=== PATIENT | female | born 1980 ===

== ENCOUNTER 2019-12-05 16:01 | Day surgery (SDC) | payer BC ==
[~2019-12-05 16:01] MED LIST: Lactated Ringer's 1,000 ML IV SCH; Mineral Oil PER 1 ML TOP SCH; Ondansetron PF 4 MG/2 ML Vial IVP PRN; Promethazine HCl 25 MG/ML VIAL IM PRN; Terbutaline Sulfate 1 MG/ML VIAL SC SCH; hydrALAZINE 20 MG/ML VIAL SLOW IVP PRN
[2019-12-05 16:32] LABS: RBC Distribution Width 12.5 % (11.5-14.5)
[2019-12-05 16:50] LABS: Hemoglobin 12.2 g/dL (12.0-16.0); Mean Corpuscular HGB CONC 33.9 g/dL (32.0-36.0); Mean Corpuscular Volume 91.6 fL (78.0-98.0); Mean Platelet Volume 8.5 fL (7.4-10.4); Platelet Count 208 thou/uL (130-400); Red Blood Cell (RBC) Count 3.92 mill/uL (4.20-5.40); White Blood Cell (WBC) Count 12.2 thou/uL (4.8-10.8)
[2019-12-05 16:54] VITALS: BMI 25.0
[2019-12-05 17:11] LABS: HBSAg Index 0.25 S/CO (0-0.99); Hep B Surf Ag Non-Reactive S/CO (NonReactive); Syphilis Antibody Nonreactive (Nonreactive); Syphilis Antibody Index 0.04 S/CO (<1.00 Non-Reactive)
== END 2019-12-05 18:25 | disposition home health service (06) ==
LOC: L&D/OP 16:01
PROVIDERS: ATTEND Obstetrics & Gynecology
PROC: 10S0XZZ Reposition Products of Conception, External Approach (ICD-10-PCS; principal; 2019-12-05)
DX: O32.1XX0 Maternal care for breech presentation, not applicable or unspecified (principal); Z3A.00 Weeks of gestation of pregnancy not specified
CPT/HCPCS: 36415; 85027; 86780; 86850; 86870; 86900; 86901; 87340; 90384; 96372; J3105

== ENCOUNTER 2019-12-20 00:43 | Inpatient (IN) | payer BC ==
[2019-12-20 01:23] VITALS: BMI 26.6
[2019-12-20] MEDS ORDERED: Ondansetron PF 4 MG/2 ML Vial IVP PRN ×2 (02:33→23:46)
[2019-12-20] MEDS ORDERED: Ibuprofen 800 MG TAB PO PRN (02:33)
[2019-12-20] MEDS ORDERED: Lidocaine 1% (PF) 30 ML VIAL SC PRN (02:33)
[2019-12-20] MEDS ORDERED: hydrALAZINE 20 MG/ML VIAL SLOW IVP PRN ×2 (02:33→23:46)
[2019-12-20] MEDS ORDERED: Promethazine HCl 25 MG/ML VIAL IM PRN (02:33)
[2019-12-20] MEDS ORDERED: NS / Oxytocin 40 units/1000ml 1,000 ML IV PRN (02:33)
[2019-12-20 02:45] LABS: Hemoglobin 13.2 g/dL (12.0-16.0); Mean Corpuscular Hemoglobin 31.1 pg (27.0-31.0); Mean Corpuscular Volume 91.5 fL (78.0-98.0); Mean Platelet Volume 8.8 fL (7.4-10.4); Platelet Count 214 thou/uL (130-400); RBC Distribution Width 12.5 % (11.5-14.5); Red Blood Cell (RBC) Count 4.24 mill/uL (4.20-5.40); White Blood Cell (WBC) Count 15.3 thou/uL (4.8-10.8)
[2019-12-20 03:18] LABS: HBSAg Index 0.26 S/CO (0-0.99); Hep B Surf Ag Non-Reactive S/CO (NonReactive)
[2019-12-20 04:18] LABS: Syphilis Antibody Nonreactive (Nonreactive); Syphilis Antibody Index 0.04 S/CO (<1.00 Non-Reactive)
--- NOTE | 2019-12-20 07:55 | PDOC.LDHP ---
Labor and Delivery H&P Chief complaint: contractions HPI: Patient started namrata at 2030 and had been namrata for several hours at home. During her last she waited at home too long and arrived at 9cm. She decided to come to hospital for use bathtub. She arrived at 1200 to hospital for evaluation. +FM. contraction every three to five minutes. Denies ROM, VB. Current gestational age (weeks): 39 (and 6 days) Due date: 12/21/19 Grav: 4 Para: 3 Current complications: other (Successful ECV at 37 weeks gestation Advanced maternal age) Current medications: pre-evelio vitamins Allergies/Adverse Reactions: Allergies Allergy/AdvReac Type Severity Reaction Status Date / Time No Known Allergies Allergy Verified 12/20/19 01:14 Social history: none - Physical Exam Vital signs reviewed and normal: yes General: breathing through contractions Heart: RRR Lungs: nonlabored breathing Abdomen: gravid FHT: category 1 - Vaginal Exam cm dilated: 3 Effacement: 50% Station: -1 - Assessment L&D Assessment: term patient in labor - Plan Plan: admit to L&D
--- NOTE | 2019-12-20 14:13 | PDOC.LDPN ---
Labor & Delivery Progress Note - Subjective Subjective: comfortable - Objective Vital signs reviewed and normal: yes General: resting Uterine fundus: non tender Dilation: 4 Effacement: 75% Station: -1 FHT: category 1 AROM: clear fluid - Assessment (1) 39 weeks gestation of Code(s): Z3A.39 - 39 WEEKS GESTATION OF Current Visit: Yes Status : Acute (2) Advanced maternal age (AMA) in Code(s): [id number] - Current Visit: Yes Status: Acute Plan: continue plan of care
[2019-12-20] MEDS ORDERED: Misoprostol 200 MCG TAB ONE (21:36)
--- NOTE | 2019-12-20 21:47 | PDOC.LDPN ---
Labor & Delivery Progress Note - Subjective Subjective: painful contractions, vaginal pressure - Objective Vital signs reviewed and normal: yes General: breathing through contractions Uterine fundus: non tender Dilation: 7 Effacement: 90% Station: -1 FHT: category 1 - Assessment (1) 39 weeks gestation of Code(s): Z3A.39 - 39 WEEKS GESTATION OF Current Visit: Yes Status : Acute (2) Advanced maternal age (AMA) in Code(s): [id number] - Current Visit: Yes Status: Acute Plan: continue plan of care
[2019-12-20] MEDS ORDERED: Bisacodyl 10 MG SUPP PR PRN (23:46)
[2019-12-20] MEDS ORDERED: NS / Oxytocin 40 units/1000ml 1,000 ML IV SCH (23:46)
[2019-12-20] MEDS ORDERED: Methylergonovine 0.2 MG/ML VIAL IM PRN (23:46)
[2019-12-20] MEDS ORDERED: HYDROcodone/Acetaminophen 5/325 mg Tablet PO PRN ×2 (23:46)
[2019-12-20] MEDS ORDERED: Milk Of Magnesia 30 ML UDCUP PO PRN (23:46)
[2019-12-20] MEDS ORDERED: Benzocaine-Menthol 82.5 ML CAN TOP PRN (23:46)
[2019-12-21] MEDS ORDERED: Witch Hazel-Glycerin 1 EACH JAR TOP PRN (00:54)
[2019-12-21] MEDS: Docusate Calcium (SURFAK) 240 MG CAP PO SCH ×2 (01:06→21:39)
[2019-12-21] MEDS: Ibuprofen 800 MG TAB PO SCH ×3 (06:22→21:39)
[2019-12-21] MEDS ORDERED: Sodium Chloride 0.9% 10 ML ONE ×2 (06:27)
[2019-12-21] MEDS ORDERED: Adacel (T-DAP) 0.5 ML SYRINGE IM ONE (09:00)
--- NOTE | 2019-12-21 09:30 | PDOC.PP ---
Post Progress Note Post Day #: 1 Subjective: Pt is doing well. she is sore on her bottom, but ok. Taking motrin. PO intake tolerated: yes Flatus: yes Ambulation: yes Vital Signs (12 hours) Temp Pulse Resp BP Pulse Ox 12/21/19 09:05 98.6 F 87 17 97/58 L 98 12/21/19 03:30 98.6 F 73 16 119/61 12/21/19 01:45 98.7 F 82 16 118/56 L 12/21/19 00:30 99.1 F 102 H 18 119/64 97 Weight Weight 170 lb - Physical Examination General: NAD Respiratory: clear to auscultation bilaterally, non-labored breathing Abdominal: + bowel sounds, lochia (minimal) Fundus firm & at: -1 Extremities: negative homans (B) Skin: no rash Neurological: no gross focal deficits Psychiatric: A&Ox3, normal affect Result Diagrams: 12/20/19 02:36 Additional Labs: Post Labs Blood Type O NEGATIVE 12/20/19 02:36 Hep Bs Antigen Non-Reactive S/CO (NonReactive) 12/20/19 02:36 (1) 39 weeks gestation of Code(s): Z3A.39 - 39 WEEKS GESTATION OF Status: Acute (2) Advanced maternal age (AMA) in Code(s): [id number] - Status: Acute (3) (spontaneous vaginal delivery) Code(s): O80 - ENCOUNTER FOR FULL-TERM UNCOMPLICATED DELIVERY Status: Acute - Assessment/Plan A: AMA g4 now p4 s/p at 39.6 P Routine care Discharge home at 24 hrs.
[2019-12-21] MEDS: Prenatal Vitamin 1 TAB PO SCH (10:03)
[2019-12-22] MEDS: Ibuprofen 800 MG TAB PO SCH (05:42)
[2019-12-22] MEDS ORDERED: Levothyroxine Sodium 75 MCG TAB PO SCH (06:00)
--- NOTE | 2019-12-22 06:28 | PDOC.PP ---
Post Progress Note Post Day #: PPD2 Subjective: Resting, no c/o. PO intake tolerated: yes Flatus: yes Ambulation: yes Vital Signs (12 hours) Temp Pulse Resp BP Pulse Ox 12/21/19 20:00 99 12/21/19 19:40 98.9 F 82 17 110/58 L Weight Weight 77.111 kg - Physical Examination General: NAD Respiratory: non-labored breathing Neurological: no gross focal deficits Psychiatric: normal affect Result Diagrams: 12/20/19 02:36 Additional Labs: Post Labs Blood Type O NEGATIVE 12/20/19 02:36 Hep Bs Antigen Non-Reactive S/CO (NonReactive) 12/20/19 02:36 - Assessment/Plan DC home. Precautions. RTC 6 weeks with Anahi See.
[2019-12-22 06:48] VITALS: BP 105/55; TEMP 98
[2019-12-22] MEDS: Docusate Calcium (SURFAK) 240 MG CAP PO SCH (09:57)
[2019-12-22] MEDS: Prenatal Vitamin 1 TAB PO SCH (09:57)
[2019-12-22] MEDS: Ferrous Sulfate 325 MG TAB PO SCH (09:58)
== END 2019-12-22 12:40 | disposition home or self-care (01) | DRG 807 ==
LOC: L&D/OP 00:43 → L&D-LIB 04:28 → 3SW 12-21 00:30
PROVIDERS: ADMIT Obstetrics & Gynecology; ATTEND Obstetrics & Gynecology
PROC: 10E0XZZ Delivery of Products of Conception, External Approach (ICD-10-PCS; principal; 2019-12-20)
PROC: 0KQM0ZZ Repair Perineum Muscle, Open Approach (ICD-10-PCS; 2019-12-20)
PROC: 10907ZC Drainage of Amniotic Fluid, Therapeutic from Products of Conception, Via Natural or Artificial Opening (ICD-10-PCS; 2019-12-20)
PROC: 3E0P7VZ Introduction of Hormone into Female Reproductive, Via Natural or Artificial Opening (ICD-10-PCS; 2019-12-20)
PROC: 3E033VJ Introduction of Other Hormone into Peripheral Vein, Percutaneous Approach (ICD-10-PCS; 2019-12-20)
PROC: 3E0234Z Introduction of Serum, Toxoid and Vaccine into Muscle, Percutaneous Approach (ICD-10-PCS; 2019-12-20)
DX: O26.893 Other specified pregnancy related conditions, third trimester (principal); Z37.0 Single live birth; O70.1 Second degree perineal laceration during delivery; Z3A.39 39 weeks gestation of pregnancy; Z23 Encounter for immunization; O69.81X0 Labor and delivery complicated by cord around neck, without compression, not applicable or unspecified; Z67.91 Unspecified blood type, Rh negative
CPT/HCPCS: 36415; 85027; 85461; 86780; 86850; 86870; 86900; 86901; 87340; 90384; 96372; 99285